=== PATIENT | female | born 1950 | race American Indian/Alaskan Native ===

== ENCOUNTER 2017-09-15 06:45 | Day surgery (SDC) | payer MEDICARE, OTHER ==
[~2017-09-15 06:45] MED LIST: TETRACAINE 0.5% OS PRN; WATER FOR IRRIG STERILE IR ONE
--- NOTE | 2017-09-15 07:40 | Anesthesia Consultation ---
Anesthesia Consult and Med Hx Date of service: 09/15/17 - Airway Anesthetic Teeth Evaluation: Good ROM Head & Neck: Adequate Mental/Hyoid Distance: Adequate Mallampati Class: Class II Intubation Access Assessment: Probably Good - Pulmonary Exam CTA: Yes - Cardiac Exam Cardiac Exam: RRR - Pre-Operative Health Status ASA Pre-Surgery Classification: ASA2 Proposed Anesthetic Plan: MAC - Pre-Anesthesia Comment Pre-Anesthesia Comments: 10/08 systolic murmur at LUSB - Cardiovascular System Hx Hypertension: Yes (OVER 10YRS) - Central Nervous System Hx Psychiatric Problems: No - Other Systems Hx Alcohol Use: No Hx Substance Use: No Hx Cancer: No
--- NOTE | 2017-09-15 07:40 | Anesthesia Day of Surgery ---
Anesthesia Day of Surgery - Day of Surgery Patient Examined: Yes Patient H&P Reviewed: Yes Patient is NPO: Yes
[2017-09-15] MEDS: AK-Dilate OS SCH ×3 (08:18→08:39)
[2017-09-15] MEDS: MYDRIACYL OS SCH ×3 (08:19→08:39)
[2017-09-15] MEDS: VIGAMOX OS SCH ×3 (08:20→08:40)
[2017-09-15] MEDS ORDERED: WATER FOR IRRIG STERILE IR ONE (10:10)
[2017-09-15] MEDS ORDERED: VERSED ONE (10:21)
[2017-09-15] MEDS ORDERED: SUBLIMAZE ONE (10:21)
--- NOTE | 2017-09-15 10:39 | Operative Report ---
Operative Report Operative Report: PATIENT'S NAME: DATE OF : DATE OF SURGERY: 09/15/2017 PREOPERATIVE DIAGNOSIS: Cataract left eye POSTOPERATIVE DIAGNOSIS: Same OPERATIVE PROCEDURE: Phacoemulsification with intraocular lens implantation, left eye SURGEON: Caridad Carranza M.D. PROFESSOR OF LITERATURE SURGEON: Leopoldo Lens: [id number] 20.0 D ANESTHESIA: Monitored anesthesia care in combination with topical and intracameral anesthesia because of the established specific risk of reflux, arrhythmias, or anxiety attacks associated with ocular manipulation, as well as the difficulty of the industrial maintenance tech to manage such potentially catastrophic events while simultaneously attempting to complete the surgical procedure and was deemed necessary for the patient's safety to have an Fish Hatchery Assistant present during the procedure whenever possible. An Fish Hatchery Assistant was utilized to regulate the intravenous sedation of the patient so the patient was cooperative yet not asleep in order for the patient to successfully maintain fixation of the eye on the operating light of the microscope. COMPLICATIONS: No surgical complications No blood loss. ALLERGIES: No known drug allergies PROGNOSIS: Excellent INDICATIONS FOR SURGERY: The patient is undergoing surgery in the hopes of eliminating or improving these visual difficulties. PROCEDURE: After arriving at the surgery center, the patient was given topical anesthetic and dilating drops, as noted in the record. The patient was then taken into the operating room and given more anesthetic drops. The eyelids , lashes, and lid margins were scrubbed with Betadine solution, and the patient was draped. The Nurse Fish Hatchery Assistant administered IV sedation and monitored the patient during the procedure. The eye was then fixated with a 0.12, and a stab incision was made in the peripheral clear cornea into the anterior chamber. This was made on my left side. Viscoelastic was next used to fill the anterior chamber. The eye was once again fixated with the 0.12 forceps and a keratome was used make an incision in clear cornea peripherally on my right hand side temporally. The capsule forceps were used to open the central anterior capsule and then make a continuous round capsulotomy. Hydrodissection was carried out utilizing a cannula and balanced salt solution to delineate the cortical material from the capsule and the nucleus from the cortical material. The phaco tip was introduced into the eye and used to remove the anterior cortical material in the area of the capsulotomy. Then the phaco tip was buried into the nucleus, and a chopping instrument was introduced into the eye and used to provide countertraction in the nucleus between this instrument and the phaco tip fracturing the nucleus. This procedure was repeated multiple times, providing multiple small segments of the lens, and then the phaco tip was used to remove each of these segments. An I/A tip was then used to remove the remaining cortex. The anterior chamber was refilled with viscoelastic. An one-piece, acrylic intraocular lens was then placed into an inserting cartridge. The tip of the inserting cartridge was introduced into the keratome incision and into the anterior chamber. The implant was gently advanced through the cartridge and into the eye, where it unfolded, and both haptics were placed in the capsular bag, where it centered nicely and appeared to be well fixated. After placement of the intraocular lens, the I~and~A handpiece was placed back into the eye and used to remove the viscoelastic, including viscoelastic that was behind the optic of the intraocular lens. The anterior chamber was then filled with balanced salt solution, and hydration of the wound was used to cause swelling of the wound and more appropriate watertight closure. When the wound was found to be firm, the patient was asked to comment on how bright the light was. If there was no light perception at all or if the light was substantially dimmer than during the rest of the surgery, the amount of fluid in the eye was decompressed to lower the intraocular pressure until the patient could see the bright light again. This was done to avoid any damage or decreased blood flow to the optic nerve. MEDICATIONS APPLIED AT END OF SURGERY: One drop of Pred Forte and Vigamox The patient was given a shield to wear at night and was instructed not to rub or push on the eye. DISCHARGE SUMMARY: The patient was released in stable condition. The patient and those with the patient were given a written sheet of postoperative instructions and counseling on any abnormal laboratory studies. The patient is to see us tomorrow for follow-up in the office and is to call immediately for any difficulties. Caridad Carranza M.D. Date
--- NOTE | 2017-09-15 10:40 | Short Stay Summary ---
Short Stay Documentation Date of service: 09/15/17 - History H&P: obtained from office - Allergies and Medications Current Medications: Allergies No Known Allergies Allergy (Verified 09/08/17 11:07) Home Medications Medication Instructions Recorded Confirmed Last Taken Type amLODIPine [Norvasc] 5 mg PO DAILY 09/08/17 09/08/17 Unknown History cloNIDine [Catapres] 0.2 mg PO QHS 09/08/17 09/08/17 Unknown History hydrALAZINE [Apresoline] 25 mg PO Q8HR 09/08/17 09/08/17 Unknown History Active Medications Moxifloxacin HCl (Vigamox) 1 drops OS Q5MIN [facility] Stop: 09/17/17 06:01 Last Admin: 09/15/17 08:40 Dose: 1 drops Phenylephrine HCl (Ak-Dilate) 1 drops OS Q5MIN [facility] Stop: 09/17/17 06:01 Last Admin: 09/15/17 08:39 Dose: 1 drops Prednisolone Acetate (Pred Forte 1%) 1 drops OS QID [facility] Tetracaine HCl (Tetracaine 0.5%) 1 drops OS Q5M PRN PRN Reason: Analgesia Last Admin: 09/15/17 08:18 Dose: 1 drops Tropicamide (Mydriacyl) 1 drops OS Q5MIN [facility] Stop: 09/17/17 06:01 Last Admin: 09/15/17 08:39 Dose: 1 drops - Brief post op/procedure progress note Date of procedure: 09/15/17 Pre-op diagnosis: left cataract Post-op diagnosis: same Procedure: Phacoemulsification WITH An intraocular lens insertion left eye Anesthesia: MAC Surgeon: AILYN DANGELO Estimated blood loss: none Pathology: none Condition: stable - Disposition Condition at discharge: Good Disposition: DC-01 TO HOME OR SELFCARE - Discharge Diagnoses (1) Cataract Status: Acute Qualifiers: Cataract type: age-related Age-related cataract type: nuclear Laterality : left Qualified Code(s): H25.12 - Age-related nuclear cataract, left eye Short Stay Discharge Plan Follow up with: ESTER FELTON MD [Primary Care Provider] - 7 Days
--- NOTE | 2017-09-15 11:24 | Post Anesthesia Evaluation ---
- Post Anesthesia Evaluation Patient Participated: Yes Airway Patent: Yes Stable Respiratory Function: Yes Temp > 96.8F: Yes Pain Manageable: Yes Adequeate Hydration: Yes Anesthesia Complications: No
[2017-09-15] MEDS ORDERED: PRED FORTE 1% ONE (11:50)
[2017-09-15 11:55] VITALS: BP 162/70
[2017-09-15] MEDS ORDERED: PRED FORTE 1% OS SCH (14:00)
== END 2017-09-15 11:45 | disposition home or self-care (01) ==
LOC: OR 06:45
DX: H25.12 Age-related nuclear cataract, left eye (principal); I10 Essential (primary) hypertension; Z79.899 Other long term (current) drug therapy
CPT/HCPCS: 66984; J2250; J3010; V2632

== ENCOUNTER 2017-09-29 06:19 | Day surgery (SDC) | payer MEDICARE, OTHER ==
[~2017-09-29 06:19] MED LIST changes: +TETRACAINE 0.5% OD PRN; -TETRACAINE 0.5% OS PRN; -WATER FOR IRRIG STERILE IR ONE
[2017-09-29] MEDS: AK-Dilate OD SCH ×3 (07:15→07:25)
[2017-09-29] MEDS: VIGAMOX OD SCH ×3 (07:15→07:25)
[2017-09-29] MEDS: MYDRIACYL OD SCH ×3 (07:15→07:25)
--- NOTE | 2017-09-29 07:25 | Anesthesia Consultation ---
Anesthesia Consult and Med Hx Date of service: 09/29/17 - Airway Anesthetic Teeth Evaluation: Good ROM Head & Neck: Adequate Mental/Hyoid Distance: Adequate Mallampati Class: Class II Intubation Access Assessment: Probably Good - Pulmonary Exam CTA: Yes - Cardiac Exam Cardiac Exam: RRR - Pre-Operative Health Status ASA Pre-Surgery Classification: ASA2 Proposed Anesthetic Plan: MAC - Pulmonary Hx Smoking: No Hx Asthma: No COPD: No Hx Sleep Apnea: No - Cardiovascular System Hx Hypertension: Yes Hx Heart Attack/AMI: No Hx Pacemaker: No - Central Nervous System Hx Psychiatric Problems: No - Hematic Hx Anemia: No - Other Systems Hx Alcohol Use: Yes (OCCCASIONAL) Hx Substance Use: No Hx Cancer: No
--- NOTE | 2017-09-29 07:26 | Anesthesia Day of Surgery ---
Anesthesia Day of Surgery - Day of Surgery Patient Examined: Yes Patient H&P Reviewed: Yes Patient is NPO: Yes
[2017-09-29] MEDS ORDERED: SUBLIMAZE ONE (08:39)
[2017-09-29] MEDS ORDERED: VERSED ONE (08:40)
--- NOTE | 2017-09-29 09:38 | Operative Report ---
Operative Report Operative Report: PATIENT'S NAME: DATE OF : DATE OF SURGERY: 09/29/2017 PREOPERATIVE DIAGNOSIS: Cataract right eye POSTOPERATIVE DIAGNOSIS: Same OPERATIVE PROCEDURE: Phacoemulsification with intraocular lens implantation, right eye SURGEON: Caridad Carranza M.D. COMPOSITE BOND WORKER SURGEON: Leopoldo Lens: [id number] 20.5 D ANESTHESIA: Monitored anesthesia care in combination with topical and intracameral anesthesia because of the established specific risk of reflux, arrhythmias, or anxiety attacks associated with ocular manipulation, as well as the difficulty of the photocomposing machine operator to manage such potentially catastrophic events while simultaneously attempting to complete the surgical procedure and was deemed necessary for the patient's safety to have an Diesel Stationary Engineer present during the procedure whenever possible. An Diesel Stationary Engineer was utilized to regulate the intravenous sedation of the patient so the patient was cooperative yet not asleep in order for the patient to successfully maintain fixation of the eye on the operating light of the microscope. COMPLICATIONS: No surgical complications No blood loss. ALLERGIES: No known drug allergies PROGNOSIS: Excellent INDICATIONS FOR SURGERY: The patient is undergoing surgery in the hopes of eliminating or improving these visual difficulties. PROCEDURE: After arriving at the surgery center, the patient was given topical anesthetic and dilating drops, as noted in the record. The patient was then taken into the operating room and given more anesthetic drops. The eyelids , lashes, and lid margins were scrubbed with Betadine solution, and the patient was draped. The Nurse Diesel Stationary Engineer administered IV sedation and monitored the patient during the procedure. The eye was then fixated with a 0.12, and a stab incision was made in the peripheral clear cornea into the anterior chamber. This was made on my left side. Viscoelastic was next used to fill the anterior chamber. The eye was once again fixated with the 0.12 forceps and a keratome was used make an incision in clear cornea peripherally on my right hand side temporally. The capsule forceps were used to open the central anterior capsule and then make a continuous round capsulotomy. Hydrodissection was carried out utilizing a cannula and balanced salt solution to delineate the cortical material from the capsule and the nucleus from the cortical material. The phaco tip was introduced into the eye and used to remove the anterior cortical material in the area of the capsulotomy. Then the phaco tip was buried into the nucleus, and a chopping instrument was introduced into the eye and used to provide countertraction in the nucleus between this instrument and the phaco tip fracturing the nucleus. This procedure was repeated multiple times, providing multiple small segments of the lens, and then the phaco tip was used to remove each of these segments. An I/A tip was then used to remove the remaining cortex. The anterior chamber was refilled with viscoelastic. An one-piece, acrylic intraocular lens was then placed into an inserting cartridge. The tip of the inserting cartridge was introduced into the keratome incision and into the anterior chamber. The implant was gently advanced through the cartridge and into the eye, where it unfolded, and both haptics were placed in the capsular bag, where it centered nicely and appeared to be well fixated. After placement of the intraocular lens, the I~and~A handpiece was placed back into the eye and used to remove the viscoelastic, including viscoelastic that was behind the optic of the intraocular lens. The anterior chamber was then filled with balanced salt solution, and hydration of the wound was used to cause swelling of the wound and more appropriate watertight closure. When the wound was found to be firm, the patient was asked to comment on how bright the light was. If there was no light perception at all or if the light was substantially dimmer than during the rest of the surgery, the amount of fluid in the eye was decompressed to lower the intraocular pressure until the patient could see the bright light again. This was done to avoid any damage or decreased blood flow to the optic nerve. MEDICATIONS APPLIED AT END OF SURGERY: One drop of Pred Forte and Vigamox The patient was given a shield to wear at night and was instructed not to rub or push on the eye. DISCHARGE SUMMARY: The patient was released in stable condition. The patient and those with the patient were given a written sheet of postoperative instructions and counseling on any abnormal laboratory studies. The patient is to see us tomorrow for follow-up in the office and is to call immediately for any difficulties. Caridad Carranza M.D. Date
--- NOTE | 2017-09-29 09:39 | Short Stay Summary ---
Short Stay Documentation Date of service: 09/29/17 - History H&P: obtained from office - Allergies and Medications Current Medications: Allergies No Known Allergies Allergy (Verified 09/08/17 11:07) Home Medications Medication Instructions Recorded Confirmed Last Taken Type amLODIPine [Norvasc] 5 mg PO DAILY 09/08/17 09/20/17 09/29/17 05:30 History cloNIDine [Catapres] 0.2 mg PO QHS 09/08/17 09/29/17 09/28/17 22:00 History hydrALAZINE [Apresoline] 25 mg PO Q8HR 09/08/17 09/20/17 09/29/17 05:30 History prednisoLONE ACETATE 1% [Pred 1 drop OS QID 09/20/17 09/20/17 09/29/17 05:30 History Forte 1%] Active Medications Moxifloxacin HCl (Vigamox) 1 drops OD Q5MIN [facility] Stop: 10/01/17 06:01 Last Admin: 09/29/17 07:25 Dose: 1 drops Phenylephrine HCl (Ak-Dilate) 1 drops OD Q5MIN [facility] Stop: 10/01/17 06:01 Last Admin: 09/29/17 07:25 Dose: 1 drops Prednisolone Acetate (Pred Forte 1%) 1 drops OD QID JULIA Tetracaine HCl (Tetracaine 0.5%) 1 drops OD Q5M PRN PRN Reason: Analgesia Stop: 09/29/17 23:59 Last Admin: 09/29/17 07:15 Dose: 1 drops Tropicamide (Mydriacyl) 1 drops OD Q5MIN [facility] Stop: 10/01/17 06:01 Last Admin: 09/29/17 07:25 Dose: 1 drops - Brief post op/procedure progress note Date of procedure: 09/29/17 Pre-op diagnosis: right cataract Post-op diagnosis: same Procedure: Phacoemulsification with intraocular lens insertion right eye Anesthesia: MAC, local Surgeon: AILYN DANGELO Estimated blood loss: none Pathology: none Condition: stable - Disposition Condition at discharge: Good - Discharge Diagnoses (1) Cataract Status: Resolved Qualifiers: Cataract type: age-related Age-related cataract type: nuclear Laterality : right Qualified Code(s): H25.11 - Age-related nuclear cataract, right eye Short Stay Discharge Plan Follow up with: WAQAS OCONNOR MD [Primary Care Provider] - 7 Days
[2017-09-29] MEDS ORDERED: PRED FORTE 1% OD SCH (10:00)
--- NOTE | 2017-09-29 10:01 | Post Anesthesia Evaluation ---
- Post Anesthesia Evaluation Patient Participated: Yes Airway Patent: Yes Stable Respiratory Function: Yes Temp > 96.8F: Yes Pain Manageable: Yes Adequeate Hydration: Yes Anesthesia Complications: No
[2017-09-29 10:36] VITALS: BP 123/84
== END 2017-09-29 06:20 | disposition home or self-care (01) ==
LOC: OR 06:19
DX: H26.9 Unspecified cataract (principal)
CPT/HCPCS: 66984; J2250; J3010; V2632

== ENCOUNTER 2018-04-07 21:22 | Emergency (ER) | payer MEDICARE ==
[2018-04-07 21:41] VITALS: BP 181/88
== END 2018-04-07 21:50 | disposition left against medical advice (07) ==
LOC: ED 21:22
DX: M79.605 Pain in left leg (principal); Z53.21 Procedure and treatment not carried out due to patient leaving prior to being seen by health care provider

== ENCOUNTER 2018-04-09 14:41 | Emergency (ER) | payer MEDICARE ==
[2018-04-09 14:48] VITALS: BP 168/85
--- NOTE | 2018-04-09 17:51 | Emergency Department Report ---
HPI - HPI HPI: ED q track screening exam patient was roberta Tuesday night it was raining she slipped on some leaves she is here with persistent lumbar pain and pain to the left hip and pelvis into the thigh she denies any bladder or bowel problems denies any numbness tingling or weakness, denies any chest pain syncope neck pain or head injury or palpitations. She will need imaging and further evaluation, patient will be further evaluated by fast track level four for further evaluation <GRISEL JACOB - Last Filed: 04/09/18 17:51> <CHRISTA LONG - Last Filed: 04/09/18 22:33> - General Chief Complaint: Fall Time Seen by Provider: 04/09/18 17:44 ED Past Medical Hx - Past Medical History Hx Hypertension: Yes - Social History Smoking Status: Never Smoker Substance Use Type: Alcohol <GRISEL JACOB - Last Filed: 04/09/18 17:51> <CHRISTA LONG - Last Filed: 04/09/18 22:33> - Medications Home Medications: Home Medications Medication Instructions Recorded Confirmed Last Taken Type amLODIPine [Norvasc] 5 mg PO DAILY 09/08/17 09/20/17 09/29/17 05:30 History cloNIDine [Catapres] 0.2 mg PO QHS 09/08/17 09/29/17 09/28/17 22:00 History hydrALAZINE [Apresoline] 25 mg PO Q8HR 09/08/17 09/20/17 09/29/17 05:30 History prednisoLONE ACETATE 1% [Pred 1 drop OS QID 09/20/17 09/20/17 09/29/17 05:30 History Forte 1%] Cyclobenzaprine [Flexeril] 10 mg PO TID PRN #15 tablet 04/09/18 Unknown Rx traMADol [Ultram 50 MG tab] 50 mg PO Q6HR PRN #20 tablet 04/09/18 Unknown Rx ED Review of Systems ROS: Stated complaint: SLIP Other details as noted in HPI <GRISEL JACOB - Last Filed: 04/09/18 17:51> ROS: Stated complaint: SLIP Other details as noted in HPI <CHRISTA LONG - Last Filed: 04/09/18 22:33> Physical Exam - Physical Exam Vital Signs: Vital Signs 04/09/18 14:46 Temperature 97.9 F Pulse Rate 60 Respiratory 18 Rate Blood Pressure 168/85 O2 Sat by Pulse 97 Oximetry General: Atraumatic normocephalic neck is supple chest clear station abdomen soft nontender without rebound or guarding tenderness to the left hip and in the left femur with some point tenderness to the back neuro is grossly nonfocal <GRISEL JACOB - Last Filed: 04/09/18 17:51> - Physical Exam Vital Signs: Vital Signs 04/09/18 14:46 Temperature 97.9 F Pulse Rate 60 Respiratory 18 Rate Blood Pressure 168/85 O2 Sat by Pulse 97 Oximetry <CHRISTA LONG - Last Filed: 04/09/18 22:33> ED Course Vital Signs 04/09/18 14:46 Temperature 97.9 F Pulse Rate 60 Respiratory 18 Rate Blood Pressure 168/85 O2 Sat by Pulse 97 Oximetry <GRISEL JACOB - Last Filed: 04/09/18 17:51> Vital Signs 04/09/18 14:46 Temperature 97.9 F Pulse Rate 60 Respiratory 18 Rate Blood Pressure 168/85 O2 Sat by Pulse 97 Oximetry <CHRISTA LONG - Last Filed: 04/09/18 22:33> ED Medical Decision Making - Radiology Data Radiology results: report reviewed, image reviewed FINDINGS: Normal lumbar lordosis. Grade 1 anterolisthesis L5 on S1. Lower lumbar significant facet osteoarthritis and hypertrophy. No scoliosis. No compression fracture. SI joints are. Imaged posterior ribs are unremarkable. Retroperitoneum is unremarkable. There is borderline canal stenosis at L5/S1 due to the anterolisthesis and facet hypertrophy causing bilateral foraminal stenosis as well. IMPRESSION: No lumbar fracture. Grade 1 anterolisthesis L5 on S1 due to degenerative arthritis. Bilateral foraminal stenosis. Limited assessment without intrathecal contrast. No sacral fracture. Transcribed By: MP Dictated By: WATSON CUETO Electronically Authenticated By: WATSON CUETO Signed Date/Time: 04/09/181921 DD/ 21 TD/TT: 04/09/181921 FINAL REPORT EXAM: CT PELVIS WO CON HISTORY: fall TECHNIQUE: Axial noncontrast CT images of the bony pelvis were performed Comparison: None FINDINGS: There is lumbar facet hypertrophy. Bones are osteopenic. Femoral heads are normally located. There is greater trochanter avulsion or and the soft of the. Sacral arches and SI joints are unremarkable. There is no disruption of the bony pelvic ring. Grade 1 anterolisthesis L5 on S1. Surgically absent uterus. In the region of the right labia majora there is a 3.8 x 2.6 centimeter hyperdense ovoid lesion suggestive of an introital cyst - possibly a bartholins gland cyst, slightly posterior to expected location of a skenes duct cyst. It is possible that this ovoid density is related to the trauma and represent a hematoma but no fracture is identified. IMPRESSION: No fracture. 3.8 x 2.6 centimeter hyperdense ovoid lesion in the right posterior introital region suggestive of a Bartholin's gland cyst or a skene duct cyst. Further workup with MRI could be performed non emergently. Less likely represents hematoma relating to the trauma as no fracture is seen. Lower lumbar facet degenerative disease and grade 1 anterolisthesis L5 on S1. Transcribed By: MP Dictated By: WATSON CUETO Electronically Authenticated By: WATSON CUETO Signed Date/Time: 04/09/181918 DD/ 18 TD/TT: 04/09/181918 <CHRISTA LONG - Last Filed: 04/09/18 22:33> Critical care attestation.: If time is entered above; I have spent that time in minutes in the direct care of this critically ill patient, excluding procedure time. <GRISEL JACOB - Last Filed: 04/09/18 17:51> Critical care attestation.: If time is entered above; I have spent that time in minutes in the direct care of this critically ill patient, excluding procedure time. <CHRISTA LONG - Last Filed: 04/09/18 22:33> ED Disposition <GRISEL JACOB - Last Filed: 04/09/18 17:51> Is pt being admited?: No Does the pt Need Aspirin: No <CHRISTA LONG - Last Filed: 04/09/18 22:33> Clinical Impression: Acute pain of left hip, Leg pain, left Back pain Qualifiers: Back pain location: low back pain Chronicity: acute Back pain laterality: unspecified Sciatica presence: without sciatica Qualified Code(s): M54.5 - Low back pain Disposition: TO HOME OR SELFCARE Condition: Stable Additional Instructions: Please take pain medication as prescribed. If her symptoms persists please follow-up with your primary care provider. X-ray shows no fractures. Prescriptions: Cyclobenzaprine [Flexeril] 10 mg PO TID PRN #15 tablet PRN Reason: Muscle Spasm traMADol [Ultram 50 MG tab] 50 mg PO Q6HR PRN #20 tablet PRN Reason: Pain Referrals: YOHANA AMBROSIO MD [Primary Care Provider] - 3-5 Days
--- NOTE | 2018-04-09 19:24 | Cat Scan Report ---
FINAL REPORT EXAM: CT PELVIS WO CON HISTORY: fall TECHNIQUE: Axial noncontrast CT images of the bony pelvis were performed Comparison: None FINDINGS: There is lumbar facet hypertrophy. Bones are osteopenic. Femoral heads are normally located. There is greater trochanter avulsion or and the soft of the. Sacral arches and SI joints are unremarkable. There is no disruption of the bony pelvic ring. Grade 1 anterolisthesis L5 on S1. Surgically absent uterus. In the region of the right labia majora there is a 3.8 x 2.6 centimeter hyperdense ovoid lesion suggestive of an introital cyst - possibly a bartholins gland cyst, slightly posterior to expected location of a skenes duct cyst. It is possible that this ovoid density is related to the trauma and represent a hematoma but no fracture is identified. IMPRESSION: No fracture. 3.8 x 2.6 centimeter hyperdense ovoid lesion in the right posterior introital region suggestive of a Bartholin's gland cyst or a skene duct cyst. Further workup with MRI could be performed non emergently. Less likely represents hematoma relating to the trauma as no fracture is seen. Lower lumbar facet degenerative disease and grade 1 anterolisthesis L5 on S1.
--- NOTE | 2018-04-09 19:26 | Cat Scan Report ---
FINAL REPORT EXAM: CT LUMBAR SPINE WO CON HISTORY: fall TECHNIQUE: Axial noncontrast CT images of the lumbosacral spine were performed. Multiplanar reformats are performed on the acquisition scanner. Comparison: None FINDINGS: Normal lumbar lordosis. Grade 1 anterolisthesis L5 on S1. Lower lumbar significant facet osteoarthritis and hypertrophy. No scoliosis. No compression fracture. SI joints are. Imaged posterior ribs are unremarkable. Retroperitoneum is unremarkable. There is borderline canal stenosis at L5/S1 due to the anterolisthesis and facet hypertrophy causing bilateral foraminal stenosis as well. IMPRESSION: No lumbar fracture. Grade 1 anterolisthesis L5 on S1 due to degenerative arthritis. Bilateral foraminal stenosis. Limited assessment without intrathecal contrast. No sacral fracture.
[2018-04-09] MEDS ORDERED: TORADOL ONE (19:45)
[2018-04-09] MEDS ORDERED: FLEXERIL ONE (19:45)
[2018-04-09] MEDS ORDERED: FLEXERIL PO ONE (19:48)
[2018-04-09] MEDS ORDERED: TORADOL IM ONE (19:48)
== END 2018-04-09 20:03 | disposition home or self-care (01) ==
LOC: ED 14:41
DX: M54.5 Low back pain (principal); M25.552 Pain in left hip; I10 Essential (primary) hypertension
CPT/HCPCS: 72131; 72192; 96372; 99283; J1885